=== PATIENT | male | born 1960 | race Caucasian/White ===

== ENCOUNTER 2025-08-13 13:57 | Emergency (ER) | payer MEDICAID ==
[2025-08-13] MEDS ORDERED: Sodium Chloride 0.9% 10 ML Syringe FLUSH PRN (15:30)
[2025-08-13] MEDS: Ondansetron 4 MG/2 ML SDV IVPUSH ONE (15:47)
[2025-08-13 15:53] LABS: BASOPHILS ABSOLUTE AUTO 0.02 K/uL (0.02-0.10); BASOPHILS PERCENT AUTO 0.2 % (0.0-0.5); EOSINOPHILS ABSOLUTE AUTO 0.04 K/uL (0.04-0.40); EOSINOPHILS PERCENT AUTO 0.3 % (1.0-5.0); LYMPHOCYTES ABSOLUTE AUTO 1.12 K/uL (1.50-4.00); LYMPHOCYTES PERCENT AUTO 8.6 % (20.0-40.0); MEAN PLATELET VOLUME 9.6 fL (6.0-10.0); MONOCYTES ABSOLUTE AUTO 0.80 K/uL (0.20-0.80); MONOCYTES PERCENT AUTO 6.1 % (3.0-10.0); NEUTROPHILS ABSOLUTE AUTO 11.08 K/uL (2.00-7.50); NEUTROPHILS PERCENT AUTO 84.8 % (45.0-70.0); PLATELET COUNT,PLT 246 K/uL (150-400); RED BLOOD CELL COUNT 5.46 M/uL (4.50-6.50); RED CELL DISTRIBUTION WIDTH 13.0 % (11.0-16.0); WHITE BLOOD CELL COUNT,WBC 13.1 K/uL (4.0-11.0)
[2025-08-13 16:13] LABS: A/G RATIO 1.1 (0.8-2.0); ALANINE AMINOTRANSFERASE,ALT 27 U/L (12-78); ASPARTATE AMNIOTRANSFERASE,AST 9 U/L (15-37); BILIRUBIN TOTAL 0.7 mg/dL (0.0-1.0); BLOOD UREA NITROGEN,BUN 20 mg/dL (8-26); CARBON DIOXIDE,CO2 27.1 mmol/L (21.0-32.0); CHLORIDE,CL 103 mmol/L (98-107); CREATININE 0.87 mg/dL (0.70-1.30); ESTIMATED GFR 96 mL/min (>60); GLUCOSE RANDOM 112 mg/dL (74-100); POTASSIUM,K 4.5 mmol/L (3.5-5.1); PROTEIN TOTAL,TP 7.0 g/dL (6.4-8.2); SODIUM,NA 139 mmol/L (136-145)
[2025-08-13] MEDS: Sodium Chloride 0.9% 10 ML Syringe FLUSH PRN (16:45)
[2025-08-13] MEDS: Iopamidol 612 MG/ML 100 ML Bottle IV SCH (16:52)
[2025-08-13] MEDS: Sodium Chloride 0.9% 50 ML SDV FLUSH ONE (16:52)
[2025-08-13] MEDS ORDERED: Sodium Chloride 0.9% 50 ML SDV FLUSH ONE (16:56)
[2025-08-13] MEDS ORDERED: Iopamidol 612 MG/ML 100 ML Bottle IV SCH (17:00)
[2025-08-13] MEDS ORDERED: Ondansetron 4 MG Tab.DIS ONE (18:00)
[2025-08-13] MEDS ORDERED: Acetaminophen/HYDROcodone 325-5 MG Tab ONE (18:00)
[2025-08-13 18:09] LABS: APPEARANCE,URINE CLEAR (CLEAR); GLUCOSE,URINE NEGATIVE (NEGATIVE); OCCULT BLOOD,URINE NEGATIVE (NEGATIVE)
[2025-08-13] MEDS: GI Cocktail Oral Solution 30 ML PO ONE (18:50)
== END 2025-08-13 18:56 | disposition home or self-care (01) ==
LOC: LB.ED 13:57
DX: K52.9 Noninfective gastroenteritis and colitis, unspecified (principal); Z79.899 Other long term (current) drug therapy
CPT/HCPCS: 36415; 74177; 80053; 81003; 83690; 83735; 85025; 86140; 96361; 96374; 99284-25; A9270-GY; J2405; J7030; Q0162; Q9967

== ENCOUNTER 2025-08-28 15:09 | Emergency (ER) | payer MEDICAID ==
[2025-08-28] MEDS: GI Cocktail Oral Solution 30 ML PO ONE (15:38)
[2025-08-28 15:54] LABS: APPEARANCE,URINE CLEAR (CLEAR); GLUCOSE,URINE NEGATIVE (NEGATIVE); OCCULT BLOOD,URINE NEGATIVE (NEGATIVE)
[2025-08-28 16:01] LABS: BASOPHILS ABSOLUTE AUTO 0.03 K/uL (0.02-0.10); BASOPHILS PERCENT AUTO 0.2 % (0.0-0.5); EOSINOPHILS ABSOLUTE AUTO 0.06 K/uL (0.04-0.40); EOSINOPHILS PERCENT AUTO 0.5 % (1.0-5.0); LYMPHOCYTES ABSOLUTE AUTO 1.33 K/uL (1.50-4.00); LYMPHOCYTES PERCENT AUTO 11.1 % (20.0-40.0); MEAN PLATELET VOLUME 9.5 fL (6.0-10.0); MONOCYTES ABSOLUTE AUTO 0.68 K/uL (0.20-0.80); MONOCYTES PERCENT AUTO 5.7 % (3.0-10.0); NEUTROPHILS ABSOLUTE AUTO 9.93 K/uL (2.00-7.50); NEUTROPHILS PERCENT AUTO 82.5 % (45.0-70.0); PLATELET COUNT,PLT 317 K/uL (150-400); RED BLOOD CELL COUNT 5.74 M/uL (4.50-6.50); RED CELL DISTRIBUTION WIDTH 12.9 % (11.0-16.0); WHITE BLOOD CELL COUNT,WBC 12.0 K/uL (4.0-11.0)
[2025-08-28 16:21] LABS: A/G RATIO 1.0 (0.8-2.0); ALANINE AMINOTRANSFERASE,ALT 42.0 U/L (12-78); ASPARTATE AMNIOTRANSFERASE,AST 16.0 U/L (15-37); BILIRUBIN TOTAL 0.7 mg/dL (0.0-1.0); BLOOD UREA NITROGEN,BUN 19.0 mg/dL (8-26); CARBON DIOXIDE,CO2 34.6 mmol/L (21.0-32.0); CHLORIDE,CL 99.0 mmol/L (98-107); CREATININE 1.11 mg/dL (0.70-1.30); EST CRCL DRUG DOSING (CG) 71.61 mL/min; ESTIMATED GFR 74.0 mL/min (>60); GLUCOSE RANDOM 118.0 mg/dL (74-100); POTASSIUM,K 4.4 mmol/L (3.5-5.1); PROTEIN TOTAL,TP 7.9 g/dL (6.4-8.2); SODIUM,NA 140.0 mmol/L (136-145)
== END 2025-08-28 17:02 | disposition home or self-care (01) ==
LOC: LB.ED 15:09
DX: K29.70 Gastritis, unspecified, without bleeding (principal); K29.80 Duodenitis without bleeding; F17.200 Nicotine dependence, unspecified, uncomplicated; Z79.899 Other long term (current) drug therapy
CPT/HCPCS: 36415; 80053; 81003; 83690; 85025; 99284; A9270-GY